=== PATIENT | male | born 1990 | race Two or more races ===

== ENCOUNTER 2019-02-04 00:43 | Emergency (ER) | payer SELFPAY ==
[~2019-02-04] VITALS: Ht 177.8 cm; Wt 67.0 kg
[2019-02-04] MEDS ORDERED: SODIUM CHLORIDE 0.9% 1,000 ML IV SCH (00:55)
[2019-02-04] MEDS ORDERED: DIPHENHYDRAMINE 50MG/ML VIAL IV ONE (01:00)
[2019-02-04] MEDS ORDERED: FAMOTIDINE 20MG/2ML VIAL IV ONE (01:00)
[2019-02-04] MEDS ORDERED: EPINEPHRINE 1:1000 1 MG/ML AMP IM ONE (01:00)
[2019-02-04] MEDS ORDERED: METHYLPREDNISOLONE SOD SUCC 125 MG/2 ML VIAL IV ONE (01:00)
[2019-02-04] MEDS: ALBUTEROL (0.083%) 2.5MG/3ML NEB HHN SCH ×3 (01:14→02:30)
[2019-02-04] MEDS ORDERED: ONDANSETRON HCL 4MG/2ML INJ IV ONE (01:15)
[2019-02-04 01:29] LABS: BASOPHILS % 0.6 % (0.0-2.0); EOSINOPHILS % 1.1 % (0.0-5.0); HEMATOCRIT. 47.4 % (42.0-52.0); HEMOGLOBIN. 16.5 g/dL (14.0-18.0); LYMPHOCYTES % 36.6 % (20.0-50.0); MEAN CORPUSCULAR HEMOGLOBIN 31.3 pg (28.0-32.0); MEAN CORPUSCULAR VOLUME 89.7 fL (80.0-94.0); MEAN PLATELET VOLUME 8.7 fl (7.4-10.4); MONOCYTES % 8.7 % (2.0-8.0); PLATELET 245 x1000/uL (130-400); RED BLOOD CELL COUNT 5.28 mill/uL (4.7-6.1); RED CELL DISTRIBUTION WIDTH 12.8 % (11.6-14.6)
[2019-02-04 01:33] LABS: CHLORIDE 106 mEq/L (98-107)
[2019-02-04 03:50] VITALS: BP 107/50
== END 2019-02-04 05:18 | disposition home or self-care (01) ==
LOC: ER 00:53
DX: T78.40XA Allergy, unspecified, initial encounter (principal); T78.2XXA Anaphylactic shock, unspecified, initial encounter; X58.XXXA Exposure to other specified factors, initial encounter
CPT/HCPCS: 36415; 71045; 80053; 85025; 94640; 96372; 96374; 96375; 99284; J1200; J2405; J2930; J3490; J7611; Z7610